=== PATIENT | female | born 1970 | race Caucasian/White ===

== ENCOUNTER 2017-02-21 15:21 | Emergency (ER) | payer MEDICARE, OTHER ==
[~2017-02-21] VITALS: Ht 161.3 cm; Wt 103.4 kg
[2017-02-21 15:25] VITALS: BP 155/99
--- NOTE | 2017-02-21 15:55 | PHYS DOC ---
Past Medical History Past Medical History: Anxiety, Arthritis, Fibromyalgia, Hypertension, Seizure, Other Additional Past Medical Histor: TBI, PTSD,chronic pain syndrome Past Surgical History: Appendectomy, Cholecystectomy, Tonsillectomy, Other Additional Past Surgical Histo: mastoidectomy, tympanoplasty,c-spine fusion, left hand Additional Information: 2 cigarettes daily Alcohol Use: None Drug Use: None Adult General Chief Complaint Chief Complaint: HEADACHE HPI HPI Patient is a 46 year old female presents emergency department stating that she has a headache started on the left side of her head approximately 1.5 hours ago. Patient states she took 2 tramadol's at 1:00 with no relief of her headache. Patient states that she has pain on the left side of her head the films over tooth has been pulled. She states that the pain is from the temporal area down around the behind the back of the left ear. She denies any visual difficulties. She denies any neurological changes. Patient does state she has a history of migraine headaches, TBI, and multiple other histories. Patient is here with her transitional living counselor. Review of Systems Review of Systems Constitutional: Denies fever or chills [] Eyes: Denies change in visual acuity, redness, or eye pain [] HENT: Denies nasal congestion or sore throat [] Respiratory: Denies cough or shortness of breath [] Cardiovascular: No additional information not addressed in HPI [] GI: Denies abdominal pain, nausea, vomiting, bloody stools or diarrhea [] : Denies dysuria or hematuria [] Musculoskeletal: Denies back pain or joint pain [] Integument: Denies rash or skin lesions [] Neurologic: headache, denies focal weakness or sensory changes [] Current Medications Current Medications Current Medications Medications (Trade) Dose Ordered Sig/[facility] Start Time Stop Time Status Last Admin Dose Admin Acetaminophen (Tylenol) 650 mg 1X ONCE 02/21/17 16:00 02/21/17 16:01 DC 02/21/17 16:00 650 MG Dexamethasone (Decadron) 8 mg 1X ONCE 02/21/17 16:45 02/21/17 16:46 DC Diphenhydramine HCl (Benadryl) 25 mg 1X ONCE 02/21/17 16:00 02/21/17 16:01 DC 02/21/17 16:00 25 MG Ketorolac Tromethamine (Toradol) 10 mg 1X ONCE 02/21/17 16:45 02/21/17 16:46 DC Metoclopramide HCl (Reglan) 10 mg 1X ONCE 02/21/17 16:00 02/21/17 16:01 DC Allergies Allergies Allergies Coded Allergies Type Severity Reaction Last Updated Verified calcium Allergy Intermediate htn, headache 02/21/17 Yes calcium carbonate Allergy Intermediate htn, headache 02/21/17 Yes prasterone (DHEA) Allergy Intermediate htn, headache 02/21/17 Yes prochlorperazine Allergy Intermediate dystonic 02/21/17 Yes promethazine Allergy Intermediate dystonic 02/21/17 Yes Physical Exam Physical Exam Constitutional: Well developed, well nourished, no acute distress, non-toxic appearance. [] HENT: Normocephalic, atraumatic, bilateral external ears normal, oropharynx moist, no oral exudates, nose normal. Bilateral tympanic membranes appear to be normal. Throat with no erythematous noted no exudate noted. Eyes: PERRLA, EOMI, conjunctiva normal, no discharge. [] Neck: Normal range of motion, no tenderness, supple, no stridor. [] Cardiovascular:Heart rate regular rhythm, no murmur [] Lungs & Thorax: Bilateral breath sounds clear to auscultation [] Skin: Warm, dry, no erythema, no rash. [] Back: No tenderness Extremities: No tenderness, no cyanosis, no clubbing, ROM intact, no edema. [] Neurologic: Alert and oriented X 3, normal motor function, normal sensory function, no focal deficits noted. Cranial nerves II through XII intact Psychologic: Affect normal, judgement normal, mood normal. [] Current Patient Data Vital Signs Vital Signs Date Time Temp Pulse Resp B/P Pulse Ox O2 Delivery O2 Flow Rate FiO2 02/21/17 15:25 97.9 97 20 155/99 98 Room Air 97.9 EKG EKG [] Radiology/Procedures Radiology/Procedures [][facility] [address] [facility] [place] [address] IMAGING REPORT Signed PATIENT: VERENA CERVANTES ACCOUNT: [id number] : 1970 LOCATION: ER AGE: 46 SEX: F EXAM STATUS: REG ER ORD. PHYSICIAN: SNEHA NOLASCO APRN REASON: left sided HARRIS, hx TBI and mastoid surgery PROCEDURE: CT HEAD WO CONTRAST CT of the head without contrast, 02/21/2017: History: Headache The ventricles are are within normal limits in size. There is no shift of the midline structures. There is no evidence of acute intracranial hemorrhage or mass effect. There are defects in both mastoid sinuses which are apparently postsurgical. There also appear to be surgical defects in the medial allan of both maxillary sinuses. IMPRESSION: No acute intracranial abnormality is detected. PQRS Compliance Statement: One or more of the following individualized dose reduction techniques were utilized for this examination: 1. Automated exposure control 2. Adjustment of the mA and/or kV according to patient size 3. Use of iterative reconstruction technique DICTATED and SIGNED BY: AZIZA SUMMERS MD DATE: 02/21/17 1626 CC: SNEHA NOLASCO APRN; UNKNOWN PCP NAME ~ Course & Med Decision Making Course & Med Decision Making Pertinent Labs and Imaging studies reviewed. (See chart for details) CT scan was negative. Patient is up moving around the room she has been very talkative throughout her entire emergency department visit. Patient does not appear to be in any distress at this time. Patient was provided with Tylenol and Benadryl here in the emergency department as she refuses Reglan. Patient will also be provided with Decadron and Toradol. She'll be discharged home with recommendations to follow-up at physicians at for further evaluation. Patient will be discharged home in stable condition signs and symptoms to return back to emergency department as been provided. [] Dragon Disclaimer Dragon Disclaimer This electronic medical record was generated, in whole or in part, using a voice recognition dictation system. Departure Departure Impression: Primary Impression: Headache Disposition: HOME, SELF-CARE Condition: STABLE Patient Instructions: General Headache Without Cause, [id number] Additional Instructions: Home to rest Continue your home medication as prescribed Rest in a quiet dark room Followup with your primary care provider in 3-5 days Return to emergency department as needed for signs and symptoms that become worse. SNEHA NOLASCO APRN Feb 21, 2017 15:55
[2017-02-21] MEDS ORDERED: ACETAMINOPHEN 325 MG TABLET. PO ONE (16:00)
[2017-02-21] MEDS ORDERED: diphenhydrAMINE HCL 25 MG CAPSULE PO ONE (16:00)
[2017-02-21] MEDS ORDERED: METOCLOPRAMIDE 10 MG TABLET. PO ONE (16:00)
--- NOTE | 2017-02-21 16:32 | RAD ---
CT of the head without contrast, 02/21/2017: History: Headache The ventricles are are within normal limits in size. There is no shift of the midline structures. There is no evidence of acute intracranial hemorrhage or mass effect. There are defects in both mastoid sinuses which are apparently postsurgical. There also appear to be surgical defects in the medial allan of both maxillary sinuses. IMPRESSION: No acute intracranial abnormality is detected. PQRS Compliance Statement: One or more of the following individualized dose reduction techniques were utilized for this examination: 1. Automated exposure control 2. Adjustment of the mA and/or kV according to patient size 3. Use of iterative reconstruction technique
[2017-02-21] MEDS ORDERED: KETOROLAC TROMETHAMINE 10 MG TABLET PO ONE (16:45)
[2017-02-21] MEDS ORDERED: DEXAMETHASONE 4 MG TABLET PO ONE (16:45)
== END 2017-02-21 16:58 | disposition home or self-care (01) ==
LOC: ER 15:21
DX: G43.909 Migraine, unspecified, not intractable, without status migrainosus (principal); F41.9 Anxiety disorder, unspecified; F43.10 Post-traumatic stress disorder, unspecified; G89.4 Chronic pain syndrome; I10 Essential (primary) hypertension; M79.7 Fibromyalgia; M19.90 Unspecified osteoarthritis, unspecified site; Z87.820 Personal history of traumatic brain injury; Z90.49 Acquired absence of other specified parts of digestive tract; F17.210 Nicotine dependence, cigarettes, uncomplicated; Z88.8 Allergy status to other drugs, medicaments and biological substances
CPT/HCPCS: 70450; 99284; J8540; Q0163

== ENCOUNTER 2018-05-02 21:26 | Emergency (ER) | payer MEDICARE, OTHER ==
[2018-05-02] MEDS: KETOROLAC 60 MG/2 ML INJ. IM (22:54)
== END 2018-05-02 22:55 | disposition home or self-care (01) ==
LOC: ER 21:26
DX: G89.29 Other chronic pain (principal); H92.02 Otalgia, left ear; I11.0 Hypertensive heart disease with heart failure; I50.9 Heart failure, unspecified; Z88.8 Allergy status to other drugs, medicaments and biological substances
CPT/HCPCS: 96372; 99283-25; J1885

== ENCOUNTER 2018-05-27 21:35 | Emergency (ER) | payer MEDICARE, OTHER | END 2018-05-27 21:55 | disposition home or self-care (01) | LOC: ER 21:55 | DX: T25.122A Burn of first degree of left foot, initial encounter (principal); T25.121A Burn of first degree of right foot, initial encounter; T23.102A Burn of first degree of left hand, unspecified site, initial encounter; F41.9 Anxiety disorder, unspecified; I11.0 Hypertensive heart disease with heart failure; I50.9 Heart failure, unspecified; F32.9 Major depressive disorder, single episode, unspecified; M19.90 Unspecified osteoarthritis, unspecified site; Z90.49 Acquired absence of other specified parts of digestive tract; Z90.89 Acquired absence of other organs; G89.4 Chronic pain syndrome; Z98.890 Other specified postprocedural states; Z88.8 Allergy status to other drugs, medicaments and biological substances; X12.XXXA Contact with other hot fluids, initial encounter; Y93.89 Activity, other specified; Y92.89 Other specified places as the place of occurrence of the external cause; Y99.8 Other external cause status | CPT/HCPCS: 99283 ==

== ENCOUNTER 2018-08-19 15:22 | Emergency (ER) | payer MEDICARE, OTHER ==
[~2018-08-19] VITALS: Ht 160 cm; Wt 99.8 kg
[~2018-08-19 15:22] MED LIST: AMOX875T PO; SILV20CR14 TP
[2018-08-19] MEDS ORDERED: PRED2.5T PO (16:19)
[2018-08-19] MEDS ORDERED: POTA10TA12 PO (16:19)
--- NOTE | 2018-08-19 16:21 | PHYS DOC ---
Past Medical History Past Medical History: Anxiety, Arthritis, CHF, Depression, Fibromyalgia, Hypertension, Hepatitis, Kidney Stone, Pancreatitis, Seizure, Other Additional Past Medical Histor: TBI, PTSD,chronic pain syndrome Past Surgical History: Appendectomy, Cholecystectomy, Tonsillectomy, Other Additional Past Surgical Histo: mastoidectomy, tympanoplasty,c-spine fusion, left hand Alcohol Use: None Drug Use: None Adult General Chief Complaint Chief Complaint: HIP PAIN HPI HPI Patient is a 47 year old Female who presents with ulcer prednisone and potassium medication and would like a few pills to get her through until she can follow-up with her new Dr. Roman Mendez and her rheumatoid doctor area patient has a history of rheumatoid arthritis, fibromyalgia, depression, bipolar , anxiety, spine fusion surgeries. Patient states all she is wearing today is some medication to get her by until she can follow-up with her doctor and a shot of Decadron to help with her pain. Patient states she took 3 arthritis Tylenol before coming her pain is a 6 out of 10. Review of Systems Review of Systems Constitutional: Denies fever or chills [] Eyes: Denies change in visual acuity, redness, or eye pain [] HENT: Denies nasal congestion or sore throat [] Respiratory: Denies cough or shortness of breath [] Cardiovascular: No additional information not addressed in HPI [] GI: Denies abdominal pain, nausea, vomiting, bloody stools or diarrhea [] : Denies dysuria or hematuria [] Musculoskeletal: Generalised back pain or joint pain [] Integument: Denies rash or skin lesions [] Neurologic: Denies headache, focal weakness or sensory changes [] Endocrine: Denies polyuria or polydipsia [] All other systems were reviewed and found to be within normal limits, except as documented in this note. Allergies Allergies Allergies Coded Allergies Type Severity Reaction Last Updated Verified calcium Allergy Intermediate htn, headache 02/21/17 Yes calcium carbonate Allergy Intermediate htn, headache 02/21/17 Yes prasterone (DHEA) Allergy Intermediate htn, headache 02/21/17 Yes prochlorperazine Allergy Intermediate dystonic 02/21/17 Yes promethazine Allergy Intermediate dystonic 02/21/17 Yes Physical Exam Physical Exam Constitutional: Well developed, well nourished, no acute distress, non-toxic appearance. [] HENT: Normocephalic, atraumatic, bilateral external ears normal, oropharynx moist, no oral exudates, nose normal. [] Eyes: PERRLA, EOMI, conjunctiva normal, no discharge. [] Neck: Normal range of motion, no tenderness, supple, no stridor. [] Cardiovascular:Heart rate regular rhythm, no murmur [] Lungs & Thorax: Bilateral breath sounds clear to auscultation [] Abdomen: Bowel sounds normal, soft, no tenderness, no masses, no pulsatile masses. [] Skin: Warm, dry, no erythema, no rash. [] Back: No tenderness, no CVA tenderness. [] Extremities: Generalised tenderness, no cyanosis, no clubbing, ROM intact, no edema. [] Neurologic: Alert and oriented X 3, normal motor function, normal sensory function, no focal deficits noted. [] Psychologic: Affect normal, judgement normal, mood normal. [] Current Patient Data Vital Signs Vital Signs Date Time Temp Pulse Resp B/P (MAP) Pulse Ox O2 Delivery O2 Flow Rate FiO2 08/19/18 15:57 98.3 85 20 186/104 (131) 97 Room Air 98.3 EKG EKG [] Radiology/Procedures Radiology/Procedures [] Course & Med Decision Making Course & Med Decision Making Patient is a 47 year old Female who presents with ulcer prednisone and potassium medication and would like a few pills to get her through until she can follow-up with her new Dr. Roman Mendez and her rheumatoid doctor area patient has a history of rheumatoid arthritis, fibromyalgia, depression, bipolar , anxiety, spine fusion surgeries. Patient states all she is wearing today is some medication to get her by until she can follow-up with her doctor and a shot of Decadron to help with her pain. Patient states she took 3 arthritis Tylenol before coming her pain is a 6 out of 10. Lungs are clear to auscultation. Patient has no swelling or deformity to her extremities. She is alert and oriented. Heart regular without murmur. Patient denies drug use, etoh or smoking. She states she does not drive and her neighbor drove her up. Patient will be given 5 days of her potassium and prednisone and a Decadron shot here today. Patient is told that she must follow up with her primary care or the Rheumatoid doctor as soon as possible. [] Dragon Disclaimer Dragon Disclaimer This electronic medical record was generated, in whole or in part, using a voice recognition dictation system. Departure Departure Impression: Primary Impression: Medication refill Disposition: HOME, SELF-CARE Condition: LEFT WITHOUT BEING SEEN Referrals: UNKNOWN PCP NAME (PCP) Patient Instructions: Rheumatoid Arthritis Additional Instructions: Follow up with your primary care azs soon as possible. Follow up with your Rheumatoid doctor as soon as possible. Scripts Prednisone (PREDNISONE) 2.5 Mg Tablet 2 TAB PO DAILY, #10 TAB 3 Refills Prov: SNEHA MOJICA APRN 08/19/18 Potassium Chloride (POTASSIUM CHLORIDE) 10 Meq Tablet.er 10 MEQ PO DAILY, #5 TAB Prov: SNEHA MOJICA EMPLOYEE HEALTH NURSE 08/19/18 SNEHA MOJICA APRN Aug 19, 2018 16:21
[2018-08-19] MEDS ORDERED: DEXAMETHASONE SOD PHOS 20 MG/5 ML VIAL. IM ONE (16:30)
[2018-08-19 16:41] VITALS: BP 148/88
== END 2018-08-19 16:42 | disposition home or self-care (01) ==
LOC: ER 15:22
DX: M06.9 Rheumatoid arthritis, unspecified (principal); Z76.0 Encounter for issue of repeat prescription; I11.0 Hypertensive heart disease with heart failure; I50.9 Heart failure, unspecified; G89.4 Chronic pain syndrome; M79.7 Fibromyalgia; Z87.820 Personal history of traumatic brain injury; Z98.1 Arthrodesis status; Z88.8 Allergy status to other drugs, medicaments and biological substances
CPT/HCPCS: 96372; 99283; J1100

== ENCOUNTER 2018-12-04 20:05 | Emergency (ER) | payer MEDICARE, OTHER ==
[~2018-12-04] VITALS: Ht 160 cm; Wt 86.2 kg
[~2018-12-04 20:05] MED LIST changes: +POTA10TA12 PO; +PRED2.5T PO
--- NOTE | 2018-12-04 20:43 | PHYS DOC ---
Past Medical History Past Medical History: Anxiety, Arthritis, CHF, Depression, Fibromyalgia, Hypertension, Hepatitis, Kidney Stone, Pancreatitis, Seizure, Other Additional Past Medical Histor: TBI, PTSD,chronic pain syndrome (PREM ACEVEDO APRN) Past Surgical History: Appendectomy, Cholecystectomy, Tonsillectomy, Other Additional Past Surgical Histo: mastoidectomy, tympanoplasty,c-spine fusion, left hand (PREM ACEVEDO APRN) Alcohol Use: None Drug Use: None (PREM ACEVEDO APRN) Adult General Chief Complaint Chief Complaint: ABDOMINAL PAIN HPI HPI Patient is a 48 year old female with history of fibromyalgia, depression, anxiety, hypertension, cholecystectomy, pancreatitis, who presents today complaining of 8 out of 10 right upper quadrant abdominal pain with nausea and vomiting that began this evening. Patient states this pain is consistent with her pancreatitis. She states her pancreatitis was induced by ibuprofen, a pain pill, and Tylenol. Patient denies any alcohol abuse. (PREM ACEVEDO APRN) Review of Systems Review of Systems Constitutional: Denies fever or chills [] Eyes: Denies change in visual acuity, redness, or eye pain [] HENT: Denies nasal congestion or sore throat [] Respiratory: Denies cough or shortness of breath [] Cardiovascular: No additional information not addressed in HPI [] GI: Reports right upper quadrant abdominal pain, nausea, vomiting. Denies bloody stools or diarrhea [] : Denies dysuria or hematuria [] Musculoskeletal: Denies back pain or joint pain [] Integument: Denies rash or skin lesions [] Neurologic: Denies headache, focal weakness or sensory changes [] All other systems were reviewed and found to be within normal limits, except as documented in this note. (PREM ACEVEDO APRN) Current Medications Current Medications Current Medications Medications (Trade) Dose Ordered Sig/[facility] Start Time Stop Time Status Last Admin Dose Admin Dexamethasone Sodium Phosphate (Decadron) 10 mg 1X ONCE 12/04/18 22:00 12/04/18 22:01 DC 12/04/18 21:54 10 MG Diphenhydramine HCl (Benadryl) 25 mg 1X ONCE 12/04/18 22:00 12/04/18 22:01 DC 12/04/18 21:54 25 MG Fentanyl Citrate (Fentanyl 2ml Vial) 50 mcg 1X ONCE 12/04/18 23:30 12/04/18 23:30 DC 12/04/18 22:59 50 MCG Info (CONTRAST GIVEN -- Rx MONITORING) 1 each PRN DAILY PRN 12/04/18 20:45 12/04/18 23:13 DC Iohexol (Omnipaque 300 Mg/ml) 75 ml 1X ONCE 12/04/18 21:00 12/04/18 21:01 DC 12/04/18 22:10 75 ML Magnesium Citrate (Citroma) 296 ml 1X ONCE 12/04/18 23:30 12/04/18 23:30 DC 12/04/18 22:59 296 ML Morphine Sulfate (Morphine Sulfate) 5 mg 1X ONCE 12/04/18 21:00 12/04/18 21:01 DC 12/04/18 21:02 5 MG Ondansetron HCl (Zofran) 4 mg 1X ONCE 12/04/18 21:00 12/04/18 21:01 DC 12/04/18 21:02 4 MG Sodium Chloride 1,000 ml @ 1,000 mls/hr 1X ONCE 12/04/18 21:00 12/04/18 21:59 DC 12/04/18 21:01 1,000 MLS/HR (FERMÍN HILL DO) Allergies Allergies Allergies Coded Allergies Type Severity Reaction Last Updated Verified calcium Allergy Intermediate htn, headache 02/21/17 Yes calcium carbonate Allergy Intermediate htn, headache 02/21/17 Yes prasterone (DHEA) Allergy Intermediate htn, headache 02/21/17 Yes prochlorperazine Allergy Intermediate dystonic 02/21/17 Yes promethazine Allergy Intermediate dystonic 02/21/17 Yes (FERMÍN HILL DO) Physical Exam Physical Exam Constitutional: Well developed, well nourished, no acute distress, non-toxic appearance. [] HENT: Normocephalic, atraumatic, bilateral external ears normal, oropharynx moist, no oral exudates, nose normal. [] Eyes: PERRLA, EOMI, conjunctiva normal, no discharge. [] Neck: Normal range of motion, no tenderness, supple, no stridor. [] Cardiovascular:Heart rate regular rhythm, no murmur [] Lungs & Thorax: Bilateral breath sounds clear to auscultation [] Abdomen: Bowel sounds normal, soft, mild tenderness to the right upper quadrant , negative Bustamante sign, no right lower quadrant tenderness, no masses, no pulsatile masses. [] Skin: Warm, dry, no erythema, no rash. [] Back: No tenderness, no CVA tenderness. [] Extremities: No tenderness, no cyanosis, no clubbing, ROM intact, no edema. [] Neurologic: Alert and oriented X 3, normal motor function, normal sensory function, no focal deficits noted. [] Psychologic: Affect normal, judgement normal, mood normal. [] (PREM ACEVEDO APRN) Current Patient Data Vital Signs Vital Signs Date Time Temp Pulse Resp B/P (MAP) Pulse Ox O2 Delivery O2 Flow Rate FiO2 12/04/18 22:59 95 Room Air 12/04/18 21:56 77 186/94 (124) 12/04/18 20:23 97.9 20 97.9 (FERMÍN HILL DO) Lab Values Laboratory Tests Test 12/04/18 20:08 12/04/18 20:12 12/04/18 20:40 Urine Collection Type Unknown Urine Color Yellow Urine Clarity Clear Urine pH 6.0 Urine Specific [place] 1.025 Urine Protein Negative mg/dL (NEG-TRACE) Urine Glucose (UA) Negative mg/dL (NEG) Urine Ketones (Stick) Negative mg/dL (NEG) Urine Blood Negative (NEG) Urine Nitrite Negative (NEG) Urine Bilirubin Negative (NEG) Urine Urobilinogen Dipstick 0.2 mg/dL (0.2 mg/dL) Urine Leukocyte Esterase Negative (NEG) Urine RBC Occ /HPF (0-2) Urine WBC Occ /HPF (0-4) Urine Squamous Epithelial Cells Mod /LPF Urine Bacteria Few /HPF (0-FEW) Urine Mucus Mod /LPF Urine Opiates Screen Pos (NEG) Urine Methadone Screen Neg (NEG) Urine Barbiturates Neg (NEG) Urine Phencyclidine Screen Neg (NEG) Urine Amphetamine/Methamphetamine Neg (NEG) Urine Benzodiazepines Screen Neg (NEG) Urine Cocaine Screen Neg (NEG) Urine Cannabinoids Screen Pos (NEG) Urine Ethyl Alcohol Neg (NEG) POC Urine HCG, Qualitative Hcg negative (Negative) White Blood Count 12.1 x10^3/uL (4.0-11.0) H Red Blood Count 4.38 x10^6/uL (3.50-5.40) Hemoglobin 14.7 g/dL (12.0-15.5) Hematocrit 42.2 % (36.0-47.0) Mean Corpuscular Volume 96 fL (79-100) Mean Corpuscular Hemoglobin 34 pg (25-35) Mean Corpuscular Hemoglobin Concent 35 g/dL (31-37) Red Cell Distribution Width 12.6 % (11.5-14.5) Platelet Count 351 x10^3/uL (140-400) Neutrophils (%) (Auto) 62 % (31-73) Lymphocytes (%) (Auto) 29 % (24-48) Monocytes (%) (Auto) 7 % (0-9) Eosinophils (%) (Auto) 1 % (0-3) Basophils (%) (Auto) 1 % (0-3) Neutrophils # (Auto) 7.6 x10^3uL (1.8-7.7) Lymphocytes # (Auto) 3.5 x10^3/uL (1.0-4.8) Monocytes # (Auto) 0.8 x10^3/uL (0.0-1.1) Eosinophils # (Auto) 0.1 x10^3/uL (0.0-0.7) Basophils # (Auto) 0.1 x10^3/uL (0.0-0.2) Sodium Level 135 mmol/L (136-145) L Potassium Level 3.8 mmol/L (3.5-5.1) Chloride Level 97 mmol/L (98-107) L Carbon Dioxide Level 26 mmol/L (21-32) Anion Gap 12 (6-14) Blood Urea Nitrogen 13 mg/dL (7-20) Creatinine 0.8 mg/dL (0.6-1.0) Estimated GFR (Cockcroft-Gault) 76.6 BUN/Creatinine Ratio 16 (6-20) Glucose Level 101 mg/dL (70-99) H Calcium Level 9.1 mg/dL (8.5-10.1) Total Bilirubin 0.5 mg/dL (0.2-1.0) Aspartate Amino Transferase (AST) 42 U/L (15-37) H Alanine Aminotransferase (ALT) 38 U/L (14-59) Alkaline Phosphatase 72 U/L (46-116) Total Protein 7.5 g/dL (6.4-8.2) Albumin 3.8 g/dL (3.4-5.0) Albumin/Globulin Ratio 1.0 (1.0-1.7) Lipase 110 U/L (73-393) Salicylates Level < 2.8 mg/dL (2.8-20.0) L Salicylate Last Dose Date Salicylate Last Dose Time Acetaminophen Level < 2 mcg/ml (10-30) L Acetaminophen Last Dose Date Acetaminophen Last Dose Time Ethyl Alcohol Level < 10 mg/dL (0-10) Laboratory Tests 12/04/18 20:40 Laboratory Tests 12/04/18 20:40 (FERMÍN HILL DO) EKG EKG [] (PREM ACEVEDO APRN) Radiology/Procedures Radiology/Procedures []REASON: abd pain hx of pancreatitis PROCEDURE: CT ABD PELV W/ IV CONTRST ONLY CT abdomen pelvis with contrast. HISTORY: Right upper quadrant pain, history of pancreatitis CT scan of the abdomen and pelvis was done using 75 mL Omnipaque 370 contrast. Lung bases are clear. There is no effusion. A liver lesion is not identified. The bile ducts are mildly prominent, the patient's had a previous cholecystectomy. Spleen and adrenal glands are normal. Pancreas is normal. There is a 4 mm calculus in the right kidney. There is a punctate calculus in the upper left kidney. There is no ureteral calculus or hydronephrosis. There is no free air or ascites or bowel obstruction. Appendix is not identified. Patient's had previous sigmoid resection. There is moderate stool in the transverse and right colon. There is no small bowel obstruction. There is a disc bulge or protrusion on the left side at L5-S1. IMPRESSION: 1. Intrarenal calculi in the kidneys. 2. No ureteral calculus or hydronephrosis. 3. Previous sigmoid resection. 4. No bowel obstruction 5. Dilated bile ducts but the patient's had a previous cholecystectomy. Electronically signed by: Ed Camara MD (12/04/2018 10:25 PM) [facility] DICTATED and SIGNED BY: ED CAMARA MD DATE: 12/04/182219 (PREM ACEVEDO APRN) Course & Med Decision Making Course & Med Decision Making Pertinent Labs and Imaging studies reviewed. (See chart for details) This is a 48-year-old. Patient presented to the ED today with complaints of right upper quadrant abdominal pain consistent with her pancreatitis. She's had history of cholecystectomy. The pain began this afternoon. Also complaining of nausea and vomiting. CBC with WBC of 12.0, CMP with AST of 42, Lipase is 110, urine analysis is negative for infection. CT of the abdomen and pelvic was negative for pancreatitis. Negative for any acute findings. Patient noted to have dilated bile ducts though she has history of cholecystectomy. She is also noted to be constipated. Instructed patient follow up with GI doctor. Over-the- counter remedies recommended for constipation. OTC pain relievers recommended too. (PREM ACEVEDO APRN) Dragon Disclaimer Dragon Disclaimer This electronic medical record was generated, in whole or in part, using a voice recognition dictation system. (PREM ACEVEDO APRN) Departure Departure Impression: Primary Impression: Right upper quadrant pain Additional Impression: Constipation Disposition: HOME, SELF-CARE Condition: STABLE Referrals: UNKNOWN PCP NAME (PCP) ANTOINETTE LOPEZ MD Follow-up in a week Patient Instructions: Abdominal Pain (Nonspecific), Constipation, Adult Additional Instructions: You were evaluated in the emergency room for abdominal pain. We recommend you follow-up with a head of art as well as a primary care doctor. You were also noted to be constipated. Consider taking MiraLAX every day. Also take magnesium citrate until you have a normal bowel movement. Push fluids. Increase your dietary fiber intake. Exercise. Attending Signature Attending Signature I have reviewed the PA/HYDRO PLANT TECHNICIAN's note and plan of care. I was available for consultation as needed during the patient's visit in the emergency department. I agree with the clinical impression, plan, and disposition. (FERMÍN HILL DO) Problem Qualifiers Additional Impression: Constipation Constipation type: unspecified constipation type Qualified Codes: K59.00 - Constipation, unspecified PREM ACEVEDO APRN Dec 04, 2018 20:43 FERMÍN HILL DO Dec 05, 2018 05:23
[2018-12-04 20:45] LABS: BILIRUBIN,URINE NEGATIVE (NEG); CLARITY,URINE CLEAR; COLOR,URINE YELLOW; NITRITE,URINE NEGATIVE (NEG); PROTEIN,URINE NEGATIVE (NEG-TRACE); UROBILINOGEN,URINE 0.2 mg/dL (0.2 mg/dL)
[2018-12-04] MEDS ORDERED: CONTRAST GIVEN. MC PRN (20:45)
[2018-12-04 20:50] LABS: BACTERIA,URINE FEW /HPF (0-FEW); RBC,URINE OCC /HPF (0-2); WBC,URINE OCC /HPF (0-4)
[2018-12-04 20:51] LABS: SQUAMOUS EPITHELIAL CELL,UR MOD /LPF
[2018-12-04 20:56] LABS: BASO # 0.1 x10^3/uL (0.0-0.2); BASO % 1 % (0-3); EOS # 0.1 x10^3/uL (0.0-0.7); EOS % 1 % (0-3); HEMATOCRIT 42.2 % (36.0-47.0); HEMOGLOBIN 14.7 g/dL (12.0-15.5); LYMPH # 3.5 x10^3/uL (1.0-4.8); LYMPH % 29 % (24-48); MEAN CORPUSCULAR HEMOGLOBIN 34 pg (25-35); MEAN CORPUSCULAR HGB CONC 35 g/dL (31-37); MEAN CORPUSCULAR VOLUME 96 fL (79-100); MONO # 0.8 x10^3/uL (0.0-1.1); MONO % 7 % (0-9); NEUT # 7.6 x10^3uL (1.8-7.7); NEUT % 62 % (31-73); PLATELET COUNT 351 x10^3/uL (140-400); RED BLOOD COUNT 4.38 x10^6/uL (3.50-5.40); RED CELL DISTRIBUTION WIDTH 12.6 % (11.5-14.5); WHITE BLOOD COUNT 12.1 x10^3/uL (4.0-11.0)
[2018-12-04] MEDS ORDERED: IOHEXOL 300 MG/ML 100ML VIAL. IV ONE (21:00)
[2018-12-04] MEDS ORDERED: MORPHINE SULFATE 10 MG/ML VIAL. IV ONE (21:00)
[2018-12-04] MEDS ORDERED: ONDANSETRON PF 4 MG/2 ML VIAL. IV ONE (21:00)
[2018-12-04] MEDS ORDERED: IV NORMAL SALINE 1000ML BAG 1,000 ML IV ONE (21:00)
[2018-12-04 21:01] LABS: BARBITURATES NEG (NEG); BENZODIAZEPINES NEG (NEG); CANNABINOIDS POS (NEG); COCAINE NEG (NEG); METHADONE NEG (NEG); OPIATES POS (NEG); PHENCYCLIDINE NEG (NEG)
[2018-12-04 21:02] LABS: AMPHETAMINE/METHAMPHETAMINE NEG (NEG)
[2018-12-04 21:06] LABS: CALCIUM 9.1 mg/dL (8.5-10.1); CREATININE 0.8 mg/dL (0.6-1.0); GFR 76.6; POTASSIUM 3.8 mmol/L (3.5-5.1)
[2018-12-04 21:12] LABS: ACETAMIN < 2 mcg/ml (10-30); ALBUMIN 3.8 g/dL (3.4-5.0); SALIC < 2.8 mg/dL (2.8-20.0); TOTAL BILIRUBIN 0.5 mg/dL (0.2-1.0); TOTAL PROTEIN 7.5 g/dL (6.4-8.2)
[2018-12-04 21:56] VITALS: BP 186/94
[2018-12-04] MEDS ORDERED: diphenhydrAMINE HCL 25 MG CAPSULE PO ONE (22:00)
[2018-12-04] MEDS ORDERED: DEXAMETHASONE SOD PHOS 20 MG/5 ML VIAL. IV ONE (22:00)
--- NOTE | 2018-12-04 22:30 | RAD ---
CT abdomen pelvis with contrast. HISTORY: Right upper quadrant pain, history of pancreatitis CT scan of the abdomen and pelvis was done using 75 mL Omnipaque 370 contrast. Lung bases are clear. There is no effusion. A liver lesion is not identified. The bile ducts are mildly prominent, the patient's had a previous cholecystectomy. Spleen and adrenal glands are normal. Pancreas is normal. There is a 4 mm calculus in the right kidney. There is a punctate calculus in the upper left kidney. There is no ureteral calculus or hydronephrosis. There is no free air or ascites or bowel obstruction. Appendix is not identified. Patient's had previous sigmoid resection. There is moderate stool in the transverse and right colon. There is no small bowel obstruction. There is a disc bulge or protrusion on the left side at L5-S1. IMPRESSION: 1. Intrarenal calculi in the kidneys. 2. No ureteral calculus or hydronephrosis. 3. Previous sigmoid resection. 4. No bowel obstruction 5. Dilated bile ducts but the patient's had a previous cholecystectomy. Electronically signed by: Ed Camara MD (12/04/2018 10:25 PM) [facility]
[2018-12-04] MEDS ORDERED: fentaNYL PF VIAL 100 MCG/2 ML VIAL IV ONE (23:30)
[2018-12-04] MEDS ORDERED: MAGNESIUM CITRATE 296 ML SOLUTION. PO ONE (23:30)
== END 2018-12-04 23:10 | disposition home or self-care (01) ==
LOC: ER 20:05
DX: K59.00 Constipation, unspecified (principal); R11.2 Nausea with vomiting, unspecified; I11.0 Hypertensive heart disease with heart failure; I50.9 Heart failure, unspecified; Z90.49 Acquired absence of other specified parts of digestive tract; Z90.89 Acquired absence of other organs; G89.29 Other chronic pain; Z98.1 Arthrodesis status; Z87.442 Personal history of urinary calculi; Z88.8 Allergy status to other drugs, medicaments and biological substances
CPT/HCPCS: 36415; 74177; 80053; 80307; 80329; 81001; 81025; 83690; 85025; 96361; 96374; 96375; 99284; G0480; G6039; J1100; J2270; J2405; J3010; J7030; Q0163; Q9967

== ENCOUNTER 2019-03-09 13:55 | Emergency (ER) | payer MEDICARE, OTHER ==
[~2019-03-09] VITALS: Ht 160 cm; Wt 98.4 kg
[2019-03-09 15:06] VITALS: BP 175/81
--- NOTE | 2019-03-09 15:49 | RAD ---
Left foot, 3 views, 03/09/2019: HISTORY: Foot pain No fracture or dislocation is identified. No significant arthritic change is seen. There is mild subcutaneous edema. IMPRESSION: No acute bony abnormality is detected. Electronically signed by: Santino Landa MD (03/09/2019 3:46 PM) [facility]
--- NOTE | 2019-03-09 15:51 | RAD ---
Lumbar spine, 3 views, 03/09/2019: HISTORY: Low back pain The lumbar vertebral heights are well-maintained. No fracture or subluxation is evident. There is a slight lumbar scoliosis. There is mild disc space narrowing and marginal spurring at L3-4. There are mild sclerotic changes involving facet joints in the lower lumbar spine. Postsurgical changes are evident in the presacral region and right upper quadrant of the abdomen. IMPRESSION: 1. Mild scattered degenerative changes. 2. No acute bony abnormality is detected. Electronically signed by: Santino Landa MD (03/09/2019 3:48 PM) [facility]
--- NOTE | 2019-03-09 16:06 | PHYS DOC ---
Past Medical History Past Medical History: Anxiety, Arthritis, CHF, Depression, Fibromyalgia, Hypertension, Hepatitis, Kidney Stone, Pancreatitis, Seizure, Other Additional Past Medical Histor: TBI, PTSD,chronic pain syndrome Past Surgical History: Appendectomy, Cholecystectomy, Hysterectomy, Tonsillectomy, Other Additional Past Surgical Histo: mastoidectomy, tympanoplasty,c-spine fusion,left hand Alcohol Use: None Drug Use: Marijuana Adult General Chief Complaint Chief Complaint: LOWER BACK PAIN OR INJURY HPI HPI Patient is a 48 year old female presents to the ED complaining of low back pain and left ankle pain 2 days ago. Patient states that she bent over and felt a pop in her lower back and twisted her left ankle when trying to stand up. Patient has a history of cervical spinal fusion and low back pain. Describes the pain as sharp. Rates the pain as 7 out of 10. Denies traumatic injury, nausea/vomiting, weakness, paresthesias, bowel/bladder changes, saddle anesthesia, chest pain, shortness of breath or fever. Review of Systems Review of Systems Constitutional: Denies fever or chills [] Eyes: Denies change in visual acuity, redness, or eye pain [] HENT: Denies nasal congestion or sore throat [] Respiratory: Denies cough or shortness of breath [] Cardiovascular: No additional information not addressed in HPI [] GI: Denies abdominal pain, nausea, vomiting, bloody stools or diarrhea [] : Denies dysuria or hematuria [] Musculoskeletal: Complains of back pain and ankle pain. Integument: Denies rash or skin lesions [] Neurologic: Denies headache, focal weakness or sensory changes [] All other systems were reviewed and found to be within normal limits, except as documented in this note. Allergies Allergies Allergies Coded Allergies Type Severity Reaction Last Updated Verified calcium Allergy Intermediate htn, headache 02/21/17 Yes calcium carbonate Allergy Intermediate htn, headache 02/21/17 Yes prasterone (DHEA) Allergy Intermediate htn, headache 02/21/17 Yes prochlorperazine Allergy Intermediate dystonic 02/21/17 Yes promethazine Allergy Intermediate dystonic 02/21/17 Yes Physical Exam Physical Exam Constitutional: Well developed, well nourished, no acute distress, non-toxic appearance. [] HENT: Normocephalic, atraumatic Eyes: PERRLA, EOMI, conjunctiva normal, no discharge. [] Neck: Normal range of motion, no tenderness, supple, no stridor. [] Cardiovascular:Heart rate regular rhythm, no murmur [] Lungs & Thorax: Bilateral breath sounds clear to auscultation [] Abdomen: Bowel sounds normal, soft, no tenderness, no masses, no pulsatile masses. [] Skin: Warm, dry, no erythema, no rash. [] Back: Mild lumbar paraspinal tenderness. FROM. No overlying skin changes. Negative SLR. No CVA tenderness. [] Extremities: Mild left lateral ankle tenderness/swelling. cyanosis, no clubbing, ROM intact, no edema. NV intact. Neurologic: Alert and oriented X 3, normal motor function, normal sensory function, no focal deficits noted. DTR's intact.[] Psychologic: Affect normal, judgement normal, mood normal. [] Current Patient Data Vital Signs Vital Signs Date Time Temp Pulse Resp B/P (MAP) Pulse Ox O2 Delivery O2 Flow Rate FiO2 03/09/19 15:06 98.1 91 18 175/81 (112) 98 Room Air 98.1 EKG EKG [] Radiology/Procedures Radiology/Procedures []PROCEDURE: FOOT LEFT 3V Left foot, 3 views, 03/09/2019: HISTORY: Foot pain No fracture or dislocation is identified. No significant arthritic change is seen. There is mild subcutaneous edema. IMPRESSION: No acute bony abnormality is detected. Lumbar spine, 3 views, 03/09/2019: HISTORY: Low back pain The lumbar vertebral heights are well-maintained. No fracture or subluxation is evident. There is a slight lumbar scoliosis. There is mild disc space narrowing and marginal spurring at L3-4. There are mild sclerotic changes involving facet joints in the lower lumbar spine. Postsurgical changes are evident in the presacral region and right upper quadrant of the abdomen. IMPRESSION: 1. Mild scattered degenerative changes. 2. No acute bony abnormality is detected. Course & Med Decision Making Course & Med Decision Making Pertinent Labs and Imaging studies reviewed. (See chart for details) []Discussed imaging findings with patient. Patient's pain improved in the ED. States she's feeling much better. Patient able to ambulate without assistance. Discussed symptomatic treatment and follow-up with ortho if symptoms persist. Provided contact information/education. Discussed reasons to return to the ED. Patient understands and agrees with plan. Quang Disclaimer Dragon Disclaimer This electronic medical record was generated, in whole or in part, using a voice recognition dictation system. Departure Departure Impression: Primary Impression: Back pain Additional Impression: Ankle sprain Disposition: HOME, SELF-CARE Condition: IMPROVED Referrals: UNKNOWN PCP NAME (PCP) DEREK CALIXTO II, MD Patient Instructions: Ankle Sprain, Back Pain, Adult Problem Qualifiers WILL PALMER March 09, 2019 16:06
== END 2019-03-09 16:13 | disposition home or self-care (01) ==
LOC: ER 13:55
DX: S93.402A Sprain of unspecified ligament of left ankle, initial encounter (principal); M54.5 Low back pain; I11.0 Hypertensive heart disease with heart failure; I50.9 Heart failure, unspecified; G89.4 Chronic pain syndrome; Z87.442 Personal history of urinary calculi; Z90.49 Acquired absence of other specified parts of digestive tract; Z90.710 Acquired absence of both cervix and uterus; Z90.89 Acquired absence of other organs; Z98.1 Arthrodesis status; Z88.8 Allergy status to other drugs, medicaments and biological substances; X50.9XXA Other and unspecified overexertion or strenuous movements or postures, initial encounter; Y93.89 Activity, other specified; Y92.89 Other specified places as the place of occurrence of the external cause; Y99.8 Other external cause status
CPT/HCPCS: 72100; 73630; 99284

== ENCOUNTER 2019-06-07 01:26 | Emergency (ER) | payer MEDICARE, OTHER ==
[~2019-06-07] VITALS: Ht 160 cm; Wt 90.7 kg
[2019-06-07 01:49] VITALS: BP 147/87
[2019-06-07 02:21] LABS: BASO # 0.1 x10^3/uL (0.0-0.2); BASO % 1 % (0-3); EOS # 0.3 x10^3/uL (0.0-0.7); EOS % 3 % (0-3); HEMATOCRIT 38.9 % (36.0-47.0); HEMOGLOBIN 13.7 g/dL (12.0-15.5); LYMPH # 3.8 x10^3/uL (1.0-4.8); LYMPH % 36 % (24-48); MEAN CORPUSCULAR HEMOGLOBIN 33 pg (25-35); MEAN CORPUSCULAR HGB CONC 35 g/dL (31-37); MEAN CORPUSCULAR VOLUME 95 fL (79-100); MONO # 0.8 x10^3/uL (0.0-1.1); MONO % 7 % (0-9); NEUT # 5.5 x10^3/uL (1.8-7.7); NEUT % 52 % (31-73); PLATELET COUNT 365 x10^3/uL (140-400); WHITE BLOOD COUNT 10.4 x10^3/uL (4.0-11.0)
[2019-06-07 02:26] LABS: BILIRUBIN,URINE NEGATIVE (NEG); CLARITY,URINE CLEAR; COLOR,URINE YELLOW; NITRITE,URINE NEGATIVE (NEG); PH,URINE 6.5; PROTEIN,URINE NEGATIVE (NEG-TRACE); UROBILINOGEN,URINE 0.2 mg/dL (0.2 mg/dL)
[2019-06-07 02:33] LABS: CALCIUM 9.4 mg/dL (8.5-10.1); CREATININE 0.8 mg/dL (0.6-1.0); GFR 76.6; POTASSIUM 3.6 mmol/L (3.5-5.1)
[2019-06-07 02:33] LABS: BARBITURATES NEG (NEG); BENZODIAZEPINES NEG (NEG); CANNABINOIDS POS (NEG); COCAINE NEG (NEG); METHADONE NEG (NEG); OPIATES NEG (NEG); PHENCYCLIDINE NEG (NEG)
[2019-06-07 02:34] LABS: AMPHETAMINE/METHAMPHETAMINE NEG (NEG)
[2019-06-07 02:36] LABS: BACTERIA,URINE MODERATE /HPF (0-FEW); RBC,URINE OCC /HPF (0-2); SQUAMOUS EPITHELIAL CELL,UR MOD /LPF
[2019-06-07 02:39] LABS: ALBUMIN 3.6 g/dL (3.4-5.0); DIRECT BILIRUBIN 0.1 mg/dL (0.0-0.2); TOTAL BILIRUBIN 0.3 mg/dL (0.2-1.0)
--- NOTE | 2019-06-07 02:44 | PHYS DOC ---
Past Medical History Past Medical History: Anxiety, Bipolar, Fibromyalgia, Hypertension, Hypothyroid, IBS, Schizophrenia Additional Past Medical Histor: TBI, SPINAL TUMORS Past Surgical History: Cervical Fusion, Hysterectomy Additional Past Surgical Histo: BOWEL RESECTION Additional Information: 1 PPD Alcohol Use: Rarely Drug Use: Marijuana Adult General Chief Complaint Chief Complaint: MULTIPLE COMPLAINTS HPI HPI Patient is a 48 year old female with history of schizophrenia who brought in by EMS because of ear pain. Patient states she has had earache and headache and neck pain and shoulder pain and anxiety since 2013 with intermittent episodes of earache and hearing voices inside of her ears. Patient states she has had ear pain and hearing voices for the last several months and decided to come to hospital today. Patient states she taking care schizophrenia medication. Patient denies suicidal and homicidal ideation and hallucination. Patient had episodes of anxiousness while giving history. Review of Systems Review of Systems Constitutional: Denies fever or chills [] Eyes: Denies change in visual acuity, redness, or eye pain [] HENT: Denies nasal congestion or sore throat, reports headache [] Respiratory: Denies cough or shortness of breath [] Cardiovascular: No additional information not addressed in HPI [] GI: Denies abdominal pain, nausea, vomiting, bloody stools or diarrhea [] : Denies dysuria or hematuria [] Musculoskeletal: Denies back pain or joint pain [] Integument: Denies rash or skin lesions [] Neurologic: Denies headache, focal weakness or sensory changes [] Endocrine: Denies polyuria or polydipsia [] All other systems were reviewed and found to be within normal limits, except as documented in this note. Current Medications Current Medications Current Medications Medications (Trade) Dose Ordered Sig/Ronald Start Time Stop Time Status Last Admin Dose Admin Lorazepam (Ativan Inj) 2 mg 1X ONCE 06/07/19 02:00 06/07/19 02:01 DC 06/07/19 01:59 2 MG Allergies Allergies Allergies Coded Allergies Type Severity Reaction Last Updated Verified prasterone (DHEA) Allergy Intermediate htn, headache 02/21/17 Yes prochlorperazine Allergy Intermediate dystonic 02/21/17 Yes promethazine Allergy Intermediate dystonic 02/21/17 Yes haloperidol Allergy Unknown 06/07/19 Yes olanzapine Allergy Unknown 06/07/19 Yes Physical Exam Physical Exam Constitutional: Well nourished, mild distress, non-toxic appearance, anxious. [] HENT: Normocephalic, atraumatic, bilateral external ears normal, oropharynx moist, no oral exudates, nose normal. [] Eyes: PERRLA, EOMI, conjunctiva normal, no discharge. [] Neck: Normal range of motion, no tenderness, supple, no stridor. [] Cardiovascular:Heart rate regular rhythm, no murmur [] Lungs & Thorax: Bilateral breath sounds clear to auscultation [] Back: No tenderness, no CVA tenderness. [] Extremities: No tenderness, no cyanosis, no clubbing, ROM intact, no edema. [] Neurologic: Alert and oriented X 3, normal motor function, normal sensory function, no focal deficits noted. [] Psychologic: Affect anxious, judgement abnormal, mood normal. [] Current Patient Data Vital Signs Vital Signs Date Time Temp Pulse Resp B/P (MAP) Pulse Ox O2 Delivery O2 Flow Rate FiO2 06/07/19 01:49 98.6 71 22 147/87 (107) 98 Room Air 98.6 Lab Values Laboratory Tests Test 06/07/19 01:50 06/07/19 02:05 06/07/19 02:10 Urine Collection Type Unknown Urine Color Yellow Urine Clarity Clear Urine pH 6.5 Urine Specific [place] 1.015 Urine Protein Negative mg/dL (NEG-TRACE) Urine Glucose (UA) Negative mg/dL (NEG) Urine Ketones (Stick) Negative mg/dL (NEG) Urine Blood Negative (NEG) Urine Nitrite Negative (NEG) Urine Bilirubin Negative (NEG) Urine Urobilinogen Dipstick 0.2 mg/dL (0.2 mg/dL) Urine Leukocyte Esterase Negative (NEG) Urine RBC Occ /HPF (0-2) Urine WBC 1-4 /HPF (0-4) Urine Squamous Epithelial Cells Mod /LPF Urine Bacteria Moderate /HPF (0-FEW) Urine Mucus Mod /LPF Urine Opiates Screen Neg (NEG) Urine Methadone Screen Neg (NEG) Urine Barbiturates Neg (NEG) Urine Phencyclidine Screen Neg (NEG) Urine Amphetamine/Methamphetamine Neg (NEG) Urine Benzodiazepines Screen Neg (NEG) Urine Cocaine Screen Neg (NEG) Urine Cannabinoids Screen Pos (NEG) Urine Ethyl Alcohol Neg (NEG) White Blood Count 10.4 x10^3/uL (4.0-11.0) Red Blood Count 4.10 x10^6/uL (3.50-5.40) Hemoglobin 13.7 g/dL (12.0-15.5) Hematocrit 38.9 % (36.0-47.0) Mean Corpuscular Volume 95 fL (79-100) Mean Corpuscular Hemoglobin 33 pg (25-35) Mean Corpuscular Hemoglobin Concent 35 g/dL (31-37) Red Cell Distribution Width 13.0 % (11.5-14.5) Platelet Count 365 x10^3/uL (140-400) Neutrophils (%) (Auto) 52 % (31-73) Lymphocytes (%) (Auto) 36 % (24-48) Monocytes (%) (Auto) 7 % (0-9) Eosinophils (%) (Auto) 3 % (0-3) Basophils (%) (Auto) 1 % (0-3) Neutrophils # (Auto) 5.5 x10^3/uL (1.8-7.7) Lymphocytes # (Auto) 3.8 x10^3/uL (1.0-4.8) Monocytes # (Auto) 0.8 x10^3/uL (0.0-1.1) Eosinophils # (Auto) 0.3 x10^3/uL (0.0-0.7) Basophils # (Auto) 0.1 x10^3/uL (0.0-0.2) Sodium Level 143 mmol/L (136-145) Potassium Level 3.6 mmol/L (3.5-5.1) Chloride Level 105 mmol/L (98-107) Carbon Dioxide Level 27 mmol/L (21-32) Anion Gap 11 (6-14) Blood Urea Nitrogen 6 mg/dL (7-20) L Creatinine 0.8 mg/dL (0.6-1.0) Estimated GFR (Cockcroft-Gault) 76.6 Glucose Level 118 mg/dL (70-99) H Calcium Level 9.4 mg/dL (8.5-10.1) Magnesium Level 2.0 mg/dL (1.8-2.4) Total Bilirubin 0.3 mg/dL (0.2-1.0) Direct Bilirubin 0.1 mg/dL (0.0-0.2) Aspartate Amino Transferase (AST) 23 U/L (15-37) Alanine Aminotransferase (ALT) 29 U/L (14-59) Alkaline Phosphatase 73 U/L (46-116) Total Protein 7.0 g/dL (6.4-8.2) Albumin 3.6 g/dL (3.4-5.0) Ethyl Alcohol Level < 10 mg/dL (0-10) POC Urine HCG, Qualitative Hcg negative (Negative) Laboratory Tests 06/07/19 02:05 Laboratory Tests 06/07/19 02:05 EKG EKG [] Radiology/Procedures Radiology/Procedures [] Course & Med Decision Making Course & Med Decision Making Evaluation of patient in ER showed 48-year-old female patient brought in by EMS because of earache for several months. Patient has history of schizophrenia and was very agitated in ER but denied suicidal or homicidal ideation. She became agitated and decided to leave about 10 minutes after receiving Ativan without signing AMA form and walked from in ER. 0320: ER charge nurse called patient at her cell phone and she answered the phone and stated she is in police car and plans going to [facility]. Dragon Disclaimer Dragon Disclaimer This electronic medical record was generated, in whole or in part, using a voice recognition dictation system. Departure Departure Impression: Primary Impression: Otalgia of left ear Additional Impressions: Hallucination Schizophrenia Disposition: 07 AGAINST MEDICAL ADVICE (without signing AMA form at 0 235) Condition: IMPROVED Referrals: NO PCP (PCP) Problem Qualifiers Additional Impressions: Schizophrenia Schizophrenia type: unspecified Qualified Codes: F20.9 - Schizophrenia, unspecified JOSTIN LOBO MD Jun 07, 2019 02:44
== END 2019-06-07 03:10 | disposition left against medical advice (07) ==
LOC: ER 01:26
DX: H92.02 Otalgia, left ear (principal); F20.9 Schizophrenia, unspecified; I10 Essential (primary) hypertension; F31.9 Bipolar disorder, unspecified; E03.9 Hypothyroidism, unspecified; K58.9 Irritable bowel syndrome, unspecified; Z87.820 Personal history of traumatic brain injury; F17.200 Nicotine dependence, unspecified, uncomplicated; Z88.8 Allergy status to other drugs, medicaments and biological substances
CPT/HCPCS: 36415; 80048; 80076; 80307; 81001; 81025; 83735; 85025; 87086; 96372; 99284; G0480; J2060

== ENCOUNTER 2019-11-07 21:47 | Emergency (ER) | payer MEDICARE, OTHER ==
[~2019-11-07] VITALS: Ht 160 cm; Wt 99.8 kg
[~2019-11-07 21:47] MED LIST changes: -POTA10TA12 PO; +POTASSIUM CHLO10 ME1 PO
[2019-11-07 22:00] VITALS: BP 160/87
[2019-11-07 22:12] LABS: BASO # 0.2 x10^3/uL (0.0-0.2); BASO % 2 % (0-3); EOS # 0.2 x10^3/uL (0.0-0.7); EOS % 1 % (0-3); HEMATOCRIT 42.3 % (36.0-47.0); HEMOGLOBIN 14.6 g/dL (12.0-15.5); LYMPH # 5.5 x10^3/uL (1.0-4.8); LYMPH % 35 % (24-48); MEAN CORPUSCULAR HEMOGLOBIN 33 pg (25-35); MEAN CORPUSCULAR HGB CONC 35 g/dL (31-37); MEAN CORPUSCULAR VOLUME 96 fL (79-100); MONO # 0.8 x10^3/uL (0.0-1.1); MONO % 5 % (0-9); NEUT # 9.1 x10^3/uL (1.8-7.7); NEUT % 57 % (31-73); PLATELET COUNT 318 x10^3/uL (140-400); RED BLOOD COUNT 4.43 x10^6/uL (3.50-5.40); RED CELL DISTRIBUTION WIDTH 12.9 % (11.5-14.5); WHITE BLOOD COUNT 15.9 x10^3/uL (4.0-11.0)
[2019-11-07 22:27] LABS: BILIRUBIN,URINE NEGATIVE (NEG); CLARITY,URINE CLEAR; COLOR,URINE ORANGE; NITRITE,URINE POSITIVE (NEG); PROTEIN,URINE NEGATIVE (NEG-TRACE)
[2019-11-07 22:30] LABS: RBC,URINE 0 /HPF (0-2); WBC,URINE OCC /HPF (0-4)
[2019-11-07 22:31] LABS: BACTERIA,URINE FEW /HPF (0-FEW); SQUAMOUS EPITHELIAL CELL,UR OCC /LPF
[2019-11-07 22:33] LABS: CALCIUM 9.4 mg/dL (8.5-10.1); GFR 58.9; POTASSIUM 3.4 mmol/L (3.5-5.1)
[2019-11-07 22:43] LABS: ALBUMIN/GLOBULIN RATIO 1.1 (1.0-1.7); MAGNESIUM 1.9 mg/dL (1.8-2.4); TOTAL BILIRUBIN 0.4 mg/dL (0.2-1.0); TOTAL PROTEIN 7.5 g/dL (6.4-8.2)
[2019-11-07 22:43] LABS: AMPHETAMINE/METHAMPHETAMINE NEG (NEG); BARBITURATES NEG (NEG); BENZODIAZEPINES NEG (NEG); CANNABINOIDS POS (NEG); COCAINE NEG (NEG); METHADONE NEG (NEG); OPIATES NEG (NEG); PHENCYCLIDINE NEG (NEG)
--- NOTE | 2019-11-07 22:46 | RAD ---
EXAM: CHEST 1 VIEW History: Dizziness COMPARISON: None available. TECHNIQUE: Single portable radiograph of the chest FINDINGS: The cardiac silhouette is unremarkable. The lungs are clear bilaterally. The costophrenic sulci are clear and well demarcated. IMPRESSION: No radiographic evidence of an acute cardiopulmonary process. Electronically signed by: Cruz Connor MD (11/07/2019 10:43 PM) [facility]
--- NOTE | 2019-11-07 22:59 | RAD ---
CT HEAD INDICATION: Dizziness COMPARISON: 02/21/2017 Exposure: One or more of the following individualized dose reduction techniques were utilized for this examination: 1. Automated exposure control 2. Adjustment of the mA and/or kV according to patient size 3. Use of iterative reconstruction technique TECHNIQUE: 5 mm contiguous axial images were obtained from the skull base to the vertex in both bone and soft tissue algorithm. FINDINGS: No abnormal attenuation within the brain parenchyma. No evidence of acute intracranial hemorrhage. No extra-axial fluid collections. No mass effect or midline shift. Ventricular size is appropriate. Basal cisterns are patent. No fractures identified.Mcdonnell-white differentiation is preserved.Globes and orbits are within normal limits. Prior bilateral mastoid surgical changes. IMPRESSION: No acute intracranial findings. Electronically signed by: Cruz Connor MD (11/07/2019 10:56 PM) [facility]
--- NOTE | 2019-11-07 23:03 | PHYS DOC ---
Past Medical History Past Medical History: Anxiety, Bipolar, Fibromyalgia, Hypertension, Hypothyroid, IBS, Schizophrenia Additional Past Medical Histor: TBI, SPINAL TUMORS (PREM ACEVEDO APRN) Past Surgical History: Cervical Fusion, Hysterectomy Additional Past Surgical Histo: BOWEL RESECTION (PREM ACEVEDO APRN) Alcohol Use: Rarely Drug Use: Marijuana (PREM ACEVEDO APRN) Adult General Chief Complaint Chief Complaint: DIZZY/LIGHT HEADED HPI HPI Patient is a 49 year old female who presents to the ED today with multiple complaints. Patient starts off by saying if she needs everything checked. She states she wants her lungs., Her kidneys checked, her head shape. She reports she has not been feeling normal since October 30, 2019. She reports she was seen at urgent care on November 01, 2019 and was diagnosed with UTI, she was given a shot of Rocephin and discharged on Bactrim. She states she doesn't know if the infection cleared out but she doesn't have any UTI symptoms but is requesting we check her kidneys. Patient denies any chest pain or shortness of breath. (PREM ACEVEDO APRN) Review of Systems Review of Systems Constitutional: Reports not feeling well. Denies fever or chills [] Eyes: Denies change in visual acuity, redness, or eye pain [] HENT: Denies nasal congestion or sore throat [] Respiratory: Denies cough or shortness of breath [] Cardiovascular: No additional information not addressed in HPI [] GI: Denies abdominal pain, nausea, vomiting, bloody stools or diarrhea [] : Reports recent UTI. Denies dysuria or hematuria [] Musculoskeletal: Denies back pain or joint pain [] Integument: Denies rash or skin lesions [] Neurologic: Denies headache, focal weakness or sensory changes [] All other systems were reviewed and found to be within normal limits, except as documented in this note. (PREM ACEVEDO APRN) Current Medications Current Medications Current Medications Medications (Trade) Dose Ordered Sig/Ronald Start Time Stop Time Status Last Admin Dose Admin Alprazolam (Xanax) 0.5 mg 1X ONCE 11/08/19 00:15 11/08/19 00:16 DC 11/08/19 00:30 0.5 MG Ciprofloxacin/ Dextrose 200 ml @ 200 mls/hr 1X ONCE 11/07/19 23:30 11/08/19 00:29 DC 11/07/19 23:20 200 MLS/HR Sodium Chloride 500 ml @ 500 mls/hr 1X ONCE 11/07/19 23:45 11/08/19 00:44 DC 11/07/19 23:42 500 MLS/HR (FERMÍN HILL DO) Allergies Allergies Allergies Coded Allergies Type Severity Reaction Last Updated Verified prasterone (DHEA) Allergy Intermediate htn, headache 02/21/17 Yes prochlorperazine Allergy Intermediate dystonic 02/21/17 Yes promethazine Allergy Intermediate dystonic 02/21/17 Yes haloperidol Allergy Unknown 06/07/19 Yes olanzapine Allergy Unknown 06/07/19 Yes (FERMÍN HILL DO) Physical Exam Physical Exam Constitutional: Well developed, well nourished, no acute distress, non-toxic appearance. [] HENT: Normocephalic, atraumatic, bilateral external ears normal, oropharynx moist, no oral exudates, nose normal. [] Eyes: PERRLA, EOMI, conjunctiva normal, no discharge. [] Neck: Normal range of motion, no tenderness, supple, no stridor. [] Cardiovascular:Heart rate regular rhythm, no murmur [] Lungs & Thorax: Bilateral breath sounds clear to auscultation [] Abdomen: Bowel sounds normal, soft, no tenderness, no masses, no pulsatile masses. [] Skin: Warm, dry, no erythema, no rash. [] Back: No tenderness, no CVA tenderness. [] Extremities: No tenderness, no cyanosis, no clubbing, ROM intact, no edema. [] Neurologic: Alert and oriented X 3, normal motor function, normal sensory function, no focal deficits noted. Cranial nerves II through XII intact Psychologic: Appears anxious. Flight of ideas. (MUTUNGA,PREM SHIPPING HELPER) Current Patient Data Vital Signs Vital Signs Date Time Temp Pulse Resp B/P (MAP) Pulse Ox O2 Delivery O2 Flow Rate FiO2 11/07/19 22:00 97.6 75 16 160/87 (111) 100 Room Air 97.6 (FERMÍN HILL DO) Lab Values Laboratory Tests Test 11/07/19 22:05 11/07/19 22:19 White Blood Count 15.9 x10^3/uL (4.0-11.0) H Red Blood Count 4.43 x10^6/uL (3.50-5.40) Hemoglobin 14.6 g/dL (12.0-15.5) Hematocrit 42.3 % (36.0-47.0) Mean Corpuscular Volume 96 fL (79-100) Mean Corpuscular Hemoglobin 33 pg (25-35) Mean Corpuscular Hemoglobin Concent 35 g/dL (31-37) Red Cell Distribution Width 12.9 % (11.5-14.5) Platelet Count 318 x10^3/uL (140-400) Neutrophils (%) (Auto) 57 % (31-73) Lymphocytes (%) (Auto) 35 % (24-48) Monocytes (%) (Auto) 5 % (0-9) Eosinophils (%) (Auto) 1 % (0-3) Basophils (%) (Auto) 2 % (0-3) Neutrophils # (Auto) 9.1 x10^3/uL (1.8-7.7) H Lymphocytes # (Auto) 5.5 x10^3/uL (1.0-4.8) H Monocytes # (Auto) 0.8 x10^3/uL (0.0-1.1) Eosinophils # (Auto) 0.2 x10^3/uL (0.0-0.7) Basophils # (Auto) 0.2 x10^3/uL (0.0-0.2) Sodium Level 137 mmol/L (136-145) Potassium Level 3.4 mmol/L (3.5-5.1) L Chloride Level 100 mmol/L (98-107) Carbon Dioxide Level 27 mmol/L (21-32) Anion Gap 10 (6-14) Blood Urea Nitrogen 18 mg/dL (7-20) Creatinine 1.0 mg/dL (0.6-1.0) Estimated GFR (Cockcroft-Gault) 58.9 BUN/Creatinine Ratio 18 (6-20) Glucose Level 96 mg/dL (70-99) Calcium Level 9.4 mg/dL (8.5-10.1) Magnesium Level 1.9 mg/dL (1.8-2.4) Total Bilirubin 0.4 mg/dL (0.2-1.0) Aspartate Amino Transferase (AST) 23 U/L (15-37) Alanine Aminotransferase (ALT) 25 U/L (14-59) Alkaline Phosphatase 79 U/L (46-116) Creatine Kinase 83 U/L (26-192) Creatine Kinase MB (Mass) 1.1 ng/mL (0.0-3.6) Creatine Kinase MB Relative Index 1.3 % (0-4) Troponin I Quantitative < 0.017 ng/mL (0.000-0.055) DW-Sub-G-Type Natriuretic Peptide 36 pg/mL (0-124) Total Protein 7.5 g/dL (6.4-8.2) Albumin 4.0 g/dL (3.4-5.0) Albumin/Globulin Ratio 1.1 (1.0-1.7) Lipase 215 U/L (73-393) Thyroid Stimulating Hormone (TSH) 1.494 uIU/mL (0.358-3.74) Ethyl Alcohol Level < 10 mg/dL (0-10) Urine Color [place] Urine Clarity Clear Urine pH 7.0 Urine Specific [place] 1.010 Urine Protein Negative mg/dL (NEG-TRACE) Urine Glucose (UA) Negative mg/dL (NEG) Urine Ketones (Stick) Negative mg/dL (NEG) Urine Blood Negative (NEG) Urine Nitrite Positive (NEG) Urine Bilirubin Negative (NEG) Urine Urobilinogen Dipstick 1.0 mg/dL (0.2 mg/dL) Urine Leukocyte Esterase Negative (NEG) Urine RBC 0 /HPF (0-2) Urine WBC Occ /HPF (0-4) Urine Squamous Epithelial Cells Occ /LPF Urine Bacteria Few /HPF (0-FEW) Urine Opiates Screen Neg (NEG) Urine Methadone Screen Neg (NEG) Urine Barbiturates Neg (NEG) Urine Phencyclidine Screen Neg (NEG) Urine Amphetamine/Methamphetamine Neg (NEG) Urine Benzodiazepines Screen Neg (NEG) Urine Cocaine Screen Neg (NEG) Urine Cannabinoids Screen Pos (NEG) Urine Ethyl Alcohol Neg (NEG) Laboratory Tests 11/07/19 22:05 Laboratory Tests 11/07/19 22:05 Microbiology 11/07/19 Urine Culture - Final, Complete 11/07/19 Urine Culture Result 1 (TATA) - Final, Complete (FERMÍN HILL DO) EKG EKG [address] Hill sinus rhythm HR 73 no STEMI[] (PREM ACEVEDO APRN) Radiology/Procedures Radiology/Procedures []PROCEDURE: CT HEAD WO CONTRAST CT HEAD INDICATION: Dizziness COMPARISON: 02/21/2017 Exposure: One or more of the following individualized dose reduction techniques were utilized for this examination: 1. Automated exposure control 2. Adjustment of the mA and/or kV according to patient size 3. Use of iterative reconstruction technique TECHNIQUE: 5 mm contiguous axial images were obtained from the skull base to the vertex in both bone and soft tissue algorithm. FINDINGS: No abnormal attenuation within the brain parenchyma. No evidence of acute intracranial hemorrhage. No extra-axial fluid collections. No mass effect or midline shift. Ventricular size is appropriate. Basal cisterns are patent. No fractures identified.Mcdonnell-white differentiation is preserved.Globes and orbits are within normal limits. Prior bilateral mastoid surgical changes. IMPRESSION: No acute intracranial findings. Electronically signed by: Cruz Connor MD (11/07/2019 10:56 PM) [facility] DICTATED and SIGNED BY: CRUZ CONNOR MD DATE: 11/07/19 6368 PROCEDURE: PORTABLE CHEST 1V EXAM: CHEST 1 VIEW History: Dizziness COMPARISON: None available. TECHNIQUE: Single portable radiograph of the chest FINDINGS: The cardiac silhouette is unremarkable. The lungs are clear bilaterally. The costophrenic sulci are clear and well demarcated. IMPRESSION: No radiographic evidence of an acute cardiopulmonary process. Electronically signed by: Cruz Connor MD (11/07/2019 10:43 PM) [facility] DICTATED and SIGNED BY: CRUZ CONNOR MD DATE: 11/07/19 4630 (PREM ACEVEDO APRN) Course & Med Decision Making Course & Med Decision Making Pertinent Labs and Imaging studies reviewed. (See chart for details) This is a 49-year-old female patient presenting to the ED today with multiple complaints be scaly asking we evaluate every out of her body including her head chest kidneys urine etc. CT of the head is negative, chest x-ray is negative, CBC with a WBC of 15.9, CMP with no acute findings, urine analysis is noted for UTI. She was apparently treated for UTI with Bactrim and Rocephin, I doubt she took the Bactrim. She appears to have underlining psychological problems. She admits to schizophrenia, bipolar and anxiety. I recommended she follows up with [facility]. She was given Cipro IV in the ED and discharged on Cipro. Provided return p recautions and discharged in stable condition. (PREM ACEVEDO APRN) Dragon Disclaimer Dragon Disclaimer This electronic medical record was generated, in whole or in part, using a voice recognition dictation system. (PREM ACEVEDO APRN) Departure Departure Impression: Primary Impression: Pyelonephritis Additional Impression: Anxiety Disposition: HOME, SELF-CARE Condition: STABLE Referrals: NO PCP (PCP) [facility] Patient Instructions: Pyelonephritis, Adult, [id number] Additional Instructions: You were evaluated in the emergency room and noted to have infection in your urine. We put you on antibiotics, ensure you complete them. Kindly follow-up with your own doctor in the next 1 week. Please consider [facility] in 1-2 weeks Scripts Ciprofloxacin Hcl (CIPRO) 500 Mg Tablet 1 TAB PO BID for 7 Days, #14 TAB 0 Refills Prov: PREM ACEVEDO APRN 11/08/19 Attending Signature Attending Signature I have reviewed the PA/CHANGE CONTROL MANAGER's note and plan of care. I was available for consultation as needed at all times during the patient's visit in the emergency department. I agree with the clinical impression, plan and disposition. (FERMÍN HILL DO) Problem Qualifiers PREM ACEVEDO APRN Nov 07, 2019 23:03 FERMÍN HILL DO Nov 09, 2019 19:21
[2019-11-07] MEDS ORDERED: CIPROFLOXACIN 400MG PREMIX 200 ML IV ONE (23:30)
[2019-11-07] MEDS ORDERED: IV NORMAL SALINE 500ML BAG 500 ML IV ONE (23:45)
[2019-11-08] MEDS ORDERED: ALPRAZolam 0.5 MG TABLET PO ONE (00:15)
[2019-11-08] MEDS ORDERED: CIPR500T94 PO (00:25)
--- NOTE | 2019-11-08 06:52 | EKG ---
[facility] [address] [place] [address] Test Date: 2019-11-07 Test Time: 22:13:14 Pat Name: VERENA CERVANTES Department: Room: Gender: F Medical Staff Coordinator: : 1970 Requested By: PREM ACEVEDO Order Number: [id number] Reading MD: Measurements Intervals [place] Rate: 72 P: 55 DE: 162 QRS: 17 QRSD: 90 T: 39 QT: 372 QTc: 413 Interpretive Statements SINUS RHYTHM NORMAL ECG No previous ECG available for comparison
== END 2019-11-08 00:35 | disposition home or self-care (01) ==
LOC: ER 21:47
DX: N12 Tubulo-interstitial nephritis, not specified as acute or chronic (principal); F41.9 Anxiety disorder, unspecified; R51 Headache; F31.9 Bipolar disorder, unspecified; I10 Essential (primary) hypertension; E03.9 Hypothyroidism, unspecified; K58.9 Irritable bowel syndrome, unspecified; F20.9 Schizophrenia, unspecified; Z90.710 Acquired absence of both cervix and uterus; Z98.1 Arthrodesis status; Z88.8 Allergy status to other drugs, medicaments and biological substances
CPT/HCPCS: 36415; 70450; 71045; 80053; 80307; 81001; 82553; 83690; 83735; 83880; 84443; 84484; 85025; 87086; 93005; 96365; 99285; G0480; J0744; J7040

== ENCOUNTER 2019-11-18 18:05 | Emergency (ER) | payer MEDICARE, OTHER ==
[~2019-11-18 18:05] MED LIST changes: +CIPR500T94 PO
[2019-11-18 18:26] VITALS: BP 165/79
[2019-11-18] MEDS ORDERED: DEXAMETHASONE SOD PHOS 20 MG/5 ML VIAL. PO ONE (18:45)
[2019-11-18 19:04] LABS: BILIRUBIN,URINE NEGATIVE (NEG); CLARITY,URINE CLEAR; COLOR,URINE YELLOW; NITRITE,URINE NEGATIVE (NEG); PH,URINE 7.5; PROTEIN,URINE NEGATIVE (NEG-TRACE); UROBILINOGEN,URINE 0.2 mg/dL (0.2 mg/dL)
[2019-11-18 19:12] LABS: BACTERIA,URINE 0 /HPF (0-FEW); WBC,URINE OCC /HPF (0-4)
[2019-11-18 19:13] LABS: SQUAMOUS EPITHELIAL CELL,UR MOD /LPF
--- NOTE | 2019-11-18 19:51 | PHYS DOC ---
Past Medical History Past Medical History: Anxiety, Bipolar, Fibromyalgia, Hypertension, Hypot hyroid, IBS, Schizophrenia Additional Past Medical Histor: TBI, SPINAL TUMORS Past Surgical History: Cervical Fusion, Hysterectomy Additional Past Surgical Histo: BOWEL RESECTION Alcohol Use: Rarely Drug Use: Marijuana Adult General Chief Complaint Chief Complaint: EARACHE/EAR PAIN [facility] HPI Patient is a 49 year old female who presents to the emergency department with complaints of bilateral ear pain for the last week and a half. She denies any de creased hearing, injury, bleeding, or drainage from her ears. Patient denies any fever, cough, nasal congestion, sore throat, nausea, vomiting, diarrhea, or abdominal pain. She states she is also concerned that maybe she has urinary tract infection. Patient reports mild dysuria, and some low back pain for the last few days. She denies increased urinary frequency, hematuria, incontinence, or inability to void. She currently rates her pain a 10/10 on the pain scale. She denies any alleviating factors. Pt reports that she uses CBD products for chronic pain and that has not helped her ears. All other ROS is neg unless otherwise noted in HPI. Review of Systems Review of Systems See Above Current Medications Current Medications Current Medications Medications (Trade) Dose Ordered Sig/Ronald Start Time Stop Time Status Last Admin Dose Admin Dexamethasone Sodium Phosphate (Decadron) 10 mg 1X ONCE 11/18/19 18:45 11/18/19 18:46 DC 11/18/19 19:22 10 MG Allergies Allergies Allergies Coded Allergies Type Severity Reaction Last Updated Verified prasterone (DHEA) Allergy Intermediate htn, headache 02/21/17 Yes prochlorperazine Allergy Intermediate dystonic 02/21/17 Yes promethazine Allergy Intermediate dystonic 02/21/17 Yes haloperidol Allergy Unknown 06/07/19 Yes olanzapine Allergy Unknown 06/07/19 Yes Physical Exam Physical Exam See Above Constitutional: Well developed, well nourished, no acute distress, non-toxic ap pearance. [] HENT: Normocephalic, atraumatic, bilateral external ears normal, bilateral TMs normal, oropharynx moist, no oral exudates, nose normal. [] Eyes: PERRLA, EOMI, conjunctiva normal, no discharge. [] Neck: Normal range of motion, no stridor. [] Cardiovascular:Heart rate regular rhythm, no murmur [] Lungs & Thorax: Bilateral breath sounds clear to auscultation, Respirations even and unlabored, no retractions, no respiratory distress[] Abdomen: Bowel sounds normal, soft, no tenderness, no masses, no pulsatile masses. [] Skin: Warm, dry, no erythema, no rash. [] Back: No CVA tenderness. [] Extremities: No cyanosis, ROM intact, no edema. [] Neurologic: Alert and oriented X 3, no focal deficits noted. [] Psychologic: Affect normal, judgement normal, mood normal. [] Current Patient Data Vital Signs Vital Signs Date Time Temp Pulse Resp B/P (MAP) Pulse Ox O2 Delivery O2 Flow Rate FiO2 11/18/19 18:26 98.0 14 165/79 (107) 96 Room Air 98.0 Lab Values Laboratory Tests Test 11/18/19 18:51 Urine Collection Type Unknown Urine Color Yellow Urine Clarity Clear Urine pH 7.5 Urine Specific [place] 1.010 Urine Protein Negative mg/dL (NEG-TRACE) Urine Glucose (UA) Negative mg/dL (NEG) Urine Ketones (Stick) Negative mg/dL (NEG) Urine Blood Negative (NEG) Urine Nitrite Negative (NEG) Urine Bilirubin Negative (NEG) Urine Urobilinogen Dipstick 0.2 mg/dL (0.2 mg/dL) Urine Leukocyte Esterase Negative (NEG) Urine RBC 1-2 /HPF (0-2) Urine WBC Occ /HPF (0-4) Urine Squamous Epithelial Cells Mod /LPF Urine Bacteria 0 /HPF (0-FEW) Urine Mucus Slight /LPF EKG EKG [] Radiology/Procedures Radiology/Procedures [] Course & Med Decision Making Course & Med Decision Making Pertinent Labs and Imaging studies reviewed. (See chart for details) [] Dragon Disclaimer Dragon Disclaimer This electronic medical record was generated, in whole or in part, using a voice recognition dictation system. Departure Departure Impression: Primary Impression: Otalgia of both ears Additional Impression: Dysuria Disposition: 01 HOME, SELF-CARE Condition: STABLE Referrals: NO PCP (PCP) Patient Instructions: Dysuria-Brief, Otalgia-Brief Additional Instructions: Recommend use of a decongestant or Flonase to help with ear pain. Follow up with your primary care doctor this week, return to the ER if symptoms worsen. Problem Qualifiers JODIE LUNA POTLINE MONITOR Nov 18, 2019 19:51
== END 2019-11-18 19:53 | disposition home or self-care (01) ==
LOC: ER 18:05
DX: H92.03 Otalgia, bilateral (principal); R30.0 Dysuria; M54.5 Low back pain; F31.9 Bipolar disorder, unspecified; F41.9 Anxiety disorder, unspecified; I10 Essential (primary) hypertension; E03.9 Hypothyroidism, unspecified; K58.9 Irritable bowel syndrome, unspecified; F20.9 Schizophrenia, unspecified; Z90.710 Acquired absence of both cervix and uterus; Z88.8 Allergy status to other drugs, medicaments and biological substances
CPT/HCPCS: 81001; 99283; J1100

== ENCOUNTER 2019-11-28 17:39 | Emergency (ER) | payer MEDICARE, OTHER ==
[~2019-11-28] VITALS: Ht 162.6 cm; Wt 95.0 kg
[2019-11-28 17:50] VITALS: BP 146/87
[2019-11-28] MEDS ORDERED: LIDOCAINE 2% 20 ML VIAL. IJ STA (18:07)
--- NOTE | 2019-11-28 18:13 | PHYS DOC ---
Past Medical History Past Medical History: Anxiety, Bipolar, Fibromyalgia, Hypertension, Hypot hyroid, IBS, Schizophrenia Additional Past Medical Histor: TBI, SPINAL TUMORS (FERMÍN BUSTILLOS APRN) Past Surgical History: Cervical Fusion, Hysterectomy Additional Past Surgical Histo: BOWEL RESECTION (FERMÍN BUSTILLOS APRN) Alcohol Use: Rarely Drug Use: Marijuana (FERMÍN BUSTILLOS APRN) Attending Signature I have participated in the care of this patient and I have reviewed and agree with all pertinent clinical information above including history, exam, and recommendations. (ZAHRA PERRY MD) Adult General Chief Complaint Chief Complaint: LACERATION/AVULSION HPI HPI Patient is a 49 year old female who presents with a laceration to her right proximal first digit. This occurred around 11 AM when she was washing dishes and broke a glass. States her last Tetanus shot was in 2013. Denies any other symptoms. Complete ROS were reviewed and found to be within normal limits, except as documented in the HPI (FERMÍN BUSTILLOS APRN) Current Medications Current Medications Current Medications Medications (Trade) Dose Ordered Sig/Ronald Start Time Stop Time Status Last Admin Dose Admin Diphtheria/ Tetanus/Acell Pertussis (Boostrix) 0.5 ml ONCE ONCE 11/28/19 18:30 11/28/19 18:31 DC 11/28/19 18:19 0.5 ML Lidocaine HCl 20 ml 1X STAT 11/28/19 18:07 11/28/19 18:10 DC 11/28/19 18:18 20 ML Neomycin/ Polymyxin/ Bacitracin (Triple Antibiotic Ointment) 1 pkt 1X ONCE 11/28/19 18:30 11/28/19 18:31 DC 11/28/19 18:18 1 PKT (ZAHRA PERRY MD) Allergies Allergies Allergies Coded Allergies Type Severity Reaction Last Updated Verified prasterone (DHEA) Allergy Intermediate htn, headache 02/21/17 Yes prochlorperazine Allergy Intermediate dystonic 02/21/17 Yes promethazine Allergy Intermediate dystonic 02/21/17 Yes haloperidol Allergy Unknown 06/07/19 Yes olanzapine Allergy Unknown 06/07/19 Yes (ZAHRA PERRY MD) Physical Exam Physical Exam Constitutional: Well developed, well nourished, no acute distress, non-toxic appearance. [] HENT: Normocephalic, atraumatic, bilateral external ears normal, oropharynx moist, no oral exudates, nose normal. [] Skin: See below. Extremities: laceration to right proximal first digit, bleeding controlled, ROM intact, neurovascular intact. Neurologic: Alert and oriented X 3, normal motor function, normal sensory function, no focal deficits noted. [] Psychologic: Affect normal, judgement normal, mood normal. [] (FERMÍN BUSTILLOS APRN) Current Patient Data Vital Signs Vital Signs Date Time Temp Pulse Resp B/P (MAP) Pulse Ox O2 Delivery O2 Flow Rate FiO2 11/28/19 17:50 98.1 74 16 146/87 (106) 98 Room Air 98.1 (ZAHRA PERRY MD) EKG EKG [] (FERMÍN BUSTILLOS APRN) Radiology/Procedures Radiology/Procedures Indication: Laceration to R thumb Procedure: The patient was placed in the appropriate position and anesthesia around the laceration was 2% lidocaine. The area was then debrided with 210 mL of NS. The laceration was closed with 3, 4-0 nylon sutures. The wound area was then dressed with neosporin. Total repaired wound length: 1 cm. Complications: None (FERMÍN BUSTILLOS APRN) Course & Med Decision Making Course & Med Decision Making Pertinent Labs and Imaging studies reviewed. (See chart for details) Will suture wound and update Tetanus. Will also put on Keflex due to laceration being open as long as it has. (FERMÍN BUSTILLOS APRN) Dragon Disclaimer Dragon Disclaimer This electronic medical record was generated, in whole or in part, using a voice recognition dictation system. (FERMÍN BUSTILLOS APRN) Departure Departure Impression: Primary Impression: Laceration Disposition: 01 HOME, SELF-CARE Condition: STABLE Referrals: NON,STAFF (PCP) Patient Instructions: Laceration Care, Adult Additional Instructions: Thank you for visiting [facility]. We appreciate you trusting us with your care. If any additional problems come up don't hesitate to return to visit us. Please follow up with your primary care provider so they can plan additional care if needed and know about the problem that you had. If symptoms worsen come back to the Emergency Department. Any concerning symptoms that start such as chest pain, shortness of air, weakness or numbness on one side of the body, running high fevers or any other concerning symptoms return to the ER. You have been prescribed an antibiotic today to help fight your infection. Please take all of the antibiotic as directed. If after 48 hours the infection is not improving, please return for more care. If the infection worsens, return to ER for additional care. Please keep your wound dry, especially for the first 24 hours. After the first 24 hours you can wet the wound for a short time. Do not soak the wound or swim until the sutures have been removed. Please have the sutures removed in 7-10 days by your primary care doctor or return to ER for removal. Please keep the wound clean and change your bandage at least twice per day. You can use Neospor in on the wound to help reduce the chance of infection. If you notice signs of infection such as drainage from the wound (Pus), redness, increased pain or swelling return to ER for treatment. Scripts Cephalexin (KEFLEX) 500 Mg Capsule 1 CAP PO QID for 5 Days, #20 CAP 0 Refills Prov: FERMÍN BUSTILLOS APRN 11/28/19 FERMÍN BUSTILLOS APRN Nov 28, 2019 18:12 ZAHRA PERRY MD Nov 29, 2019 04:09
[2019-11-28] MEDS ORDERED: DIPHTH,PERTUSS(ACELL),TET TOX 0.5 ML DISP.SYRIN. VAX IM ONE (18:30)
[2019-11-28] MEDS ORDERED: NEOMY/BACITR/POLYMYXIN OINT PACKET. TP ONE (18:30)
[2019-11-28] MEDS ORDERED: CEPH-264 PO (18:50)
== END 2019-11-28 19:01 | disposition home or self-care (01) ==
LOC: ER 17:39
DX: S61.011A Laceration without foreign body of right thumb without damage to nail, initial encounter (principal); F31.9 Bipolar disorder, unspecified; I10 Essential (primary) hypertension; E03.9 Hypothyroidism, unspecified; K58.9 Irritable bowel syndrome, unspecified; F20.9 Schizophrenia, unspecified; Z88.8 Allergy status to other drugs, medicaments and biological substances; W25.XXXA Contact with sharp glass, initial encounter; Y93.89 Activity, other specified; Y92.89 Other specified places as the place of occurrence of the external cause; Y99.8 Other external cause status
CPT/HCPCS: 12001; 90471; 90715; 99283; J2001